=== PATIENT | female | born 1960 | race African-American/Black ===

== ENCOUNTER 2017-03-30 15:09 | Emergency (ER) | payer SELFPAY ==
[~2017-03-30 15:09] MED LIST: Iopamidol 370 76% 100 ML VIAL ONE
[2017-03-30 15:32] LABS: Bilirubin Negative (Negative); Blood, Urine Negative (Negative); Clarity Clear (Clear); Glucose, Urine (Dipstick) Negative (Negative); Leukocyte Negative (Negative); Nitrite Negative (Negative); Protein, Urine (Dipstick) Negative (Neg-Trace); Urobilinogen 0.2 mg/dL (0.2-1.0)
[2017-03-30 15:33] LABS: Specific Gravity, Urine 1.003 (1.002-1.036)
[2017-03-30 15:54] LABS: Pregnancy Test - Urine (BHCG) Negative (Negative)
[2017-03-30 15:55] LABS: Pregu Control Background? CLEAR/WHITE (CLR/WHITE); Pregu Control Bar Appear? YES (CONTROL BAR); Specific Gravity 1.003 (1.002-1.036)
[2017-03-30 15:57] LABS: #Basophils 0.1 thou/uL (0.0-0.2); #Lymphocytes 1.8 thou/uL (1.20-3.40); #Monocytes 0.4 thou/uL (0.11-0.59); %Basophils 0.8 % (0.0-1.0); %Eosinophils 0.5 % (0.0-10.0); %Lymphocytes 28.8 % (21.0-51.0); %Neutrophils 63.9 % (42.0-75.0); Hemoglobin 13.9 g/dL (12.0-16.0); Mean Corpuscular HGB CONC 33.9 g/dL (32.0-36.0); Mean Corpuscular Hemoglobin 31.3 pg (27.0-31.0); Mean Corpuscular Volume 92.4 fl (81.0-99.0); Mean Platelet Volume 9.3 fL (7.4-10.4); Platelet Count 246 thou/uL (130-400); RBC Distribution Width 11.4 % (11.5-14.5); Red Blood Cell (RBC) Count 4.42 mill/uL (4.20-5.40); White Blood Cell (WBC) Count 6.2 thou/uL (4.8-10.8)
[2017-03-30] MEDS ORDERED: Ketorolac Tromethamine 30 MG/ML VIAL ONE (15:58)
[2017-03-30 16:09] LABS: ALT (SGPT) 37 U/L (8-55); AST (SGOT) 65 U/L (5-34); Albumin 4.1 g/dL (3.5-5.0); Alkaline Phosphatase 110 U/L (40-150); Anion Gap 17 mmol/L (10-20); BUN (Urea Nitrogen) 4 mg/dL (9.8-20.1); Bilirubin, Total 0.3 mg/dL (0.2-1.2); Calc. Creatinine Clearance 0 mL/min (70-130); Calcium 9.3 mg/dL (7.8-10.44); Carbon Dioxide 20 mmol/L (22-29); Chloride 108 mmol/L (98-107); Estimated GFR-MDRD 88; Globulin 3.7 g/dL (2.4-3.5); Glucose 106 mg/dL (70-105); Lipase 53 U/L (8-78); Potassium 3.7 mmol/L (3.5-5.1); Protein, Total 7.8 g/dL (6.0-8.3); Sodium 141 mmol/L (136-145)
[2017-03-30] MEDS ORDERED: cefTRIAXone\\ROCEPHIN 1 GM VIAL ONE (17:07)
[2017-03-30] MEDS ORDERED: Sodium Chloride 0.9% 100 ML ONE (17:08)
--- NOTE | 2017-03-30 17:39 | CT ---
CT ABDOMEN AND PELVIS WITH CONTRAST 03/30/[address] of the abdomen and pelvis was done for evaluation of suprapubic pain and dysuria. Axial sl ices were acquired, then coronal reconstructions were done. The lung bases are clear. No effusions are seen. The liver is somewhat low density suggesting a diffuse fatty infiltration. The size is normal and no masses were seen. The spleen, pancreas, adrenal glands and abdominal aorta showed no acute findings . No stones were seen in the gallbladder. The kidneys showed no mass or hydronephrosis. There is a marginal amount of perinephric stranding on the left, but this is most often a chronic finding. My understanding is that the patient's urinary is unremarkable. The bowel shows no distention. There is no inflammatory change around bowel or bowel wall thickening . No free air of free fluid was seen. CT of the pelvis showed no pelvic masses, free fluid, or inflammatory changes. There may be a calcif ication associated with the left ovary. Degenerative changes are seen in the lumbar spine, particula rly at the L5-S1 level. There is some diffuse concentric bulging of the L3-4 and L4-5 discs. IMPRESSION: 1. No acute abdominal or pelvic findings to explain the patient's symptoms. 2. Diffuse fatty infiltration of the liver. POS: HOME
[2017-04-02 20:35] LABS: Chlamydia by PCR Not Detected (NotDetected); GC by PCR Not Detected (NotDetected)
== END 2017-03-30 18:07 | disposition home or self-care (01) ==
LOC: BURERS 15:09
DX: R30.0 Dysuria (principal); R10.9 Unspecified abdominal pain; I10 Essential (primary) hypertension; F17.210 Nicotine dependence, cigarettes, uncomplicated; F41.9 Anxiety disorder, unspecified
CPT/HCPCS: 74177; 80053; 81003; 81025; 83690; 85025; 87077; 87086; 87491; 87591; 94760; 96361; 96365; 96375; A4216; J0696; J1885; J7050

== ENCOUNTER 2017-06-15 10:13 | Emergency (ER) | payer MEDICAID, SELFPAY ==
[2017-06-15] MEDS ORDERED: Famotidine In NaCl 20 mg/50 ml Premix Bag ONE (10:46)
[2017-06-15] MEDS ORDERED: diphenhydrAMINE 50 MG/ML VIAL ONE (10:46)
[2017-06-15] MEDS ORDERED: Prochlorperazine 10 MG/2 ML VIAL ONE (10:46)
[2017-06-15 10:50] LABS: Band 2 % (5-11); Eosinophils 2 % (0-10); Hemoglobin 13.8 g/dL (12.0-16.0); Lymphocytes 14 % (21-51); MDiff Complete? YES; Mean Corpuscular HGB CONC 32.8 g/dL (32.0-36.0); Mean Corpuscular Hemoglobin 30.2 pg (27.0-31.0); Mean Platelet Volume 8.1 fL (7.4-10.4); Monocytes 8 % (0-10); Neutrophil 74 % (42-75); Platelet Count 145 thou/uL (130-400); RBC Distribution Width 10.8 % (11.5-14.5); Red Blood Cell (RBC) Count 4.59 mill/uL (4.20-5.40); White Blood Cell (WBC) Count 5.3 thou/uL (4.8-10.8)
[2017-06-15 10:58] LABS: Anion Gap 20 mmol/L (10-20); BUN (Urea Nitrogen) 7 mg/dL (9.8-20.1); Calc. Creatinine Clearance 0 mL/min (70-130); Calcium 9.6 mg/dL (7.8-10.44); Carbon Dioxide 22 mmol/L (22-29); Chloride 99 mmol/L (98-107); Estimated GFR-MDRD 74; Glucose 94 mg/dL (70-105); Potassium 3.8 mmol/L (3.5-5.1); Sodium 137 mmol/L (136-145)
[2017-06-15] MEDS ORDERED: Ketorolac Tromethamine 30 MG/ML VIAL ONE (11:03)
== END 2017-06-15 11:47 | disposition home or self-care (01) ==
LOC: BURERS 10:13
DX: J11.1 Influenza due to unidentified influenza virus with other respiratory manifestations (principal); I10 Essential (primary) hypertension; F32.9 Major depressive disorder, single episode, unspecified; F41.9 Anxiety disorder, unspecified; F17.210 Nicotine dependence, cigarettes, uncomplicated
CPT/HCPCS: 36415; 80048; 85025; 96365; 96375; J0780; J1200; J1885

== ENCOUNTER 2017-08-24 20:44 | Emergency (ER) | payer MEDICAID, OTHER ==
[2017-08-24] MEDS ORDERED: predniSONE 20 MG TAB ONE (21:10)
[2017-08-24] MEDS ORDERED: hydrOXYzine 25 MG TAB ONE (21:11)
== END 2017-08-24 21:22 | disposition home or self-care (01) ==
LOC: BURERS 20:44
DX: T63.441A Toxic effect of venom of bees, accidental (unintentional), initial encounter (principal); F41.9 Anxiety disorder, unspecified; F32.9 Major depressive disorder, single episode, unspecified; F17.210 Nicotine dependence, cigarettes, uncomplicated
CPT/HCPCS: 99282; J7506

== ENCOUNTER 2017-09-13 07:48 | Emergency (ER) | payer OTHER ==
[2017-09-13] MEDS ORDERED: Ketorolac Tromethamine 60 MG/2 ML VIAL ONE (08:10)
== END 2017-09-13 08:20 | disposition home or self-care (01) ==
LOC: BURERS 07:48
DX: B34.9 Viral infection, unspecified (principal); F41.9 Anxiety disorder, unspecified; F32.9 Major depressive disorder, single episode, unspecified; F17.210 Nicotine dependence, cigarettes, uncomplicated
CPT/HCPCS: 96372; J1885

== ENCOUNTER 2017-09-19 18:16 | Emergency (ER) | payer OTHER ==
[2017-09-19] MEDS ORDERED: Ibuprofen 200 MG TAB ONE (19:07)
[2017-09-19] MEDS ORDERED: Ondansetron ODT 4 MG TAB ONE (19:07)
[2017-09-19] MEDS ORDERED: Acetaminophen 500 MG TAB ONE (19:07)
--- NOTE | 2017-09-19 21:18 | RAD ---
CHEST TWO VIEWS: Date: 09-19-17 Comparison: 07-20-13 FINDINGS: There is a patchy infiltrate of the left upper lobe that was not present before. This is presumably p neumonia but it should be followed to complete resolution to be sure there is no other pathology here . Right lung is clear. Old healed rib fractures are seen in multiple right posterior ribs. The heart size is normal. There are no effusions. The trachea is midline. IMPRESSION: Patchy left upper lobe infiltrate consistent with pneumonia. A follow up film after treatment is requ ired. POS: HOME
== END 2017-09-19 20:07 | disposition home or self-care (01) ==
LOC: BURERS 18:16
DX: J18.9 Pneumonia, unspecified organism (principal); I10 Essential (primary) hypertension; F17.210 Nicotine dependence, cigarettes, uncomplicated
CPT/HCPCS: 71046; Q0162

== ENCOUNTER 2018-02-27 17:09 | Emergency (ER) | payer OTHER, SELFPAY ==
[2018-02-27 17:48] LABS: #Eosinphils 0.1 thou/uL (0.0-0.7); #Lymphocytes 2.1 thou/uL (1.20-3.40); #Monocytes 0.4 thou/uL (0.11-0.59); #Neutrophils 3.6 thou/uL (1.40-6.50); %Basophils 0.3 % (0.0-1.0); %Lymphocytes 33.5 % (21.0-51.0); %Monocytes 6.4 % (0.0-10.0); %Neutrophils 58.8 % (42.0-75.0); Hemoglobin 12.2 g/dL (12.0-16.0); Mean Corpuscular HGB CONC 35.4 g/dL (32.0-36.0); Mean Corpuscular Volume 81.9 fL (78.0-98.0); Mean Platelet Volume 6.2 fL (7.4-10.4); Platelet Count 201 thou/uL (130-400); RBC Distribution Width 10.9 % (11.5-14.5); White Blood Cell (WBC) Count 6.2 thou/uL (4.8-10.8)
[2018-02-27 18:04] LABS: ALT (SGPT) 21 U/L (8-55); AST (SGOT) 45 U/L (5-34); Alkaline Phosphatase 102 U/L (40-150); Anion Gap 17 mmol/L (10-20); BUN (Urea Nitrogen) 7 mg/dL (9.8-20.1); Bilirubin, Total 0.2 mg/dL (0.2-1.2); Calc. Creatinine Clearance 0 mL/min (70-130); Calcium 9.1 mg/dL (7.8-10.44); Carbon Dioxide 23 mmol/L (22-29); Chloride 105 mmol/L (98-107); Estimated GFR-MDRD Greater than 90; Globulin 3.5 g/dL (2.4-3.5); Glucose 101 mg/dL (70-105); Potassium 3.7 mmol/L (3.5-5.1); Protein, Total 7.5 g/dL (6.0-8.3); Sodium 141 mmol/L (136-145)
--- NOTE | 2018-02-27 20:43 | RAD ---
LUMBAR SPINE THREE VIEWS: 02/27/2018 FINDINGS: Degenerative disk disease is present at L5-S1, consisting of disk space narrowing, a vacuum phenomeno n, and osteophytes. Cross-sectional imaging would be needed to see if there is any neural impingemen t. Small osteophytes are seen elsewhere in the spine, predominantly at L4-L5. No fracture, dislocat ion, or SI joint abnormality is seen. There are some mild degenerative changes in each hip. IMPRESSION: Fairly predominant degenerative disk findings at L5-S1. POS: HOME
== END 2018-02-27 19:10 | disposition home or self-care (01) ==
LOC: BURERS 17:09
DX: M54.16 Radiculopathy, lumbar region (principal); I10 Essential (primary) hypertension; F32.9 Major depressive disorder, single episode, unspecified; F41.9 Anxiety disorder, unspecified; F17.210 Nicotine dependence, cigarettes, uncomplicated
CPT/HCPCS: 36415; 72100; 80053; 85025; 96372

== ENCOUNTER 2018-04-05 21:09 | Emergency (ER) | payer OTHER ==
[2018-04-05] MEDS ORDERED: HYDROcodone/Acetaminophen 10/325 mg Tablet ONE (21:22)
[2018-04-05] MEDS ORDERED: Ketorolac Tromethamine 30 MG/ML VIAL ONE (21:23)
== END 2018-04-05 21:39 | disposition home or self-care (01) ==
LOC: BURERS 21:09 → EDBD 21:09 → BURERS 21:39
DX: G89.29 Other chronic pain (principal); M54.5 Low back pain; F32.9 Major depressive disorder, single episode, unspecified; F41.9 Anxiety disorder, unspecified; F17.210 Nicotine dependence, cigarettes, uncomplicated; I10 Essential (primary) hypertension; Z79.899 Other long term (current) drug therapy
CPT/HCPCS: 96372; J1885

== ENCOUNTER 2018-05-22 18:19 | Emergency (ER) | payer OTHER ==
[2018-05-22] MEDS ORDERED: Ketorolac Tromethamine 30 MG/ML VIAL ONE (18:50)
[2018-05-22] MEDS ORDERED: HYDROcodone/Acetaminophen 10/325 mg Tablet ONE (18:50)
== END 2018-05-22 19:00 | disposition home or self-care (01) ==
LOC: BURERS 18:19
DX: M13.0 Polyarthritis, unspecified (principal); F41.9 Anxiety disorder, unspecified; I10 Essential (primary) hypertension; F17.210 Nicotine dependence, cigarettes, uncomplicated; F32.9 Major depressive disorder, single episode, unspecified; Z79.891 Long term (current) use of opiate analgesic; Z79.899 Other long term (current) drug therapy
CPT/HCPCS: 96372; J1885

== ENCOUNTER 2018-11-18 15:55 | Emergency (ER) | payer OTHER ==
[2018-11-18 16:14] LABS: Bilirubin Negative (Negative); Blood, Urine Negative (Negative); Clarity Clear (Clear); Glucose, Urine (Dipstick) Negative (Negative); Leukocyte Negative (Negative); Nitrite Negative (Negative); Protein, Urine (Dipstick) Negative (Neg-Trace); Urobilinogen 0.2 mg/dL (0.2-1.0)
[2018-11-18 16:16] LABS: Specific Gravity, Urine 1.002 (1.002-1.036)
[2018-11-18 16:31] LABS: Pregnancy Test - Urine (BHCG) Negative (Negative); Pregu Control Background? CLEAR/WHITE (CLR/WHITE); Pregu Control Bar Appear? YES (CONTROL BAR); Specific Gravity 1.002 (1.002-1.036)
[2018-11-18 16:41] LABS: #Lymphocytes 1.8 thou/uL (1.20-3.40); #Monocytes 0.6 thou/uL (0.11-0.59); #Neutrophils 2.5 thou/uL (1.40-6.50); %Basophils 0.5 % (0.0-1.0); %Eosinophils 0.5 % (0.0-10.0); %Lymphocytes 36.5 % (21.0-51.0); %Monocytes 11.8 % (0.0-10.0); %Neutrophils 50.7 % (42.0-75.0); Hemoglobin 12.3 g/dL (12.0-16.0); Mean Corpuscular HGB CONC 33.7 g/dL (32.0-36.0); Mean Platelet Volume 7.1 fL (7.4-10.4); Platelet Count 167 thou/uL (130-400); RBC Distribution Width 11.3 % (11.5-14.5); Red Blood Cell (RBC) Count 4.11 mill/uL (4.20-5.40)
[2018-11-18] MEDS ORDERED: Ketorolac Tromethamine 30 MG/ML VIAL ONE (16:56)
[2018-11-18 16:58] LABS: ALT (SGPT) 38 U/L (8-55); AST (SGOT) 77 U/L (5-34); Albumin 4.3 g/dL (3.5-5.0); Alcohol 303 mg/dL (Less than 10); Alkaline Phosphatase 109 U/L (40-150); Anion Gap 18 mmol/L (10-20); BUN (Urea Nitrogen) 7 mg/dL (9.8-20.1); Bilirubin, Total 0.3 mg/dL (0.2-1.2); Calc. Creatinine Clearance 0 mL/min (70-130); Carbon Dioxide 21 mmol/L (22-29); Chloride 98 mmol/L (98-107); Estimated GFR-MDRD Greater than 90; Globulin 3.4 g/dL (2.4-3.5); Glucose 96 mg/dL (70-105); Potassium 3.9 mmol/L (3.5-5.1); Protein, Total 7.7 g/dL (6.0-8.3); Sodium 133 mmol/L (136-145)
--- NOTE | 2018-11-18 19:34 | CT ---
CT ABDOMEN AND PELVIS WITH CONTRAST 11/18/[address] of the abdomen and pelvis was performed with IV contrast. Initial reading of this study was significantly delayed due to PACS and internet issues. Comparison is made with older CT studies. The left ureter seems somewhat dilated. It is difficult to follow it completely. There is one calcifi cation near the left UVJ that is suspicious for a small stone in the distal ureter, but it is difficu lt to be certain. It is 4 to 5 mm in caliber. The urinary bladder is moderately distended today. This would potentially fit with the history of left sided pain. The lung bases are clear and show no effusions. Diffuse fatty infiltration of the liver is present as before. No gallstones were seen. The pancreas, spleen, and adrenal glands were unremarkable. No mass or calcification was seen in either kidney. There really is not much hydronephrosis in the left kidn ey at all, but the left ureter does seem rather large soon exiting the renal pelvis. The bowel shows no distention or inflammatory change round it. There is no free air or free fluid. CT of the pelvis shows moderate distention of the urinary bladder. No adnexal masses were seen. There are various pelvic calcifications which are mostly phleboliths. Again, one near the left UVJ is some what suspicious for a distal stone given location and it is more angular than rounded. A perfectly ro unded calcification seen just anteromedial to the distal left psoas muscle in the mid pelvic level ap pears to be a phlebolith and was present previously. There are significant degenerative changes in th e lumbar spine with a degenerated disc at L5-S1 and central canal stenosis at at least L4-L5 and L3-L 4. IMPRESSION: 1. Some dilation of the left ureter down to the pelvic level. Suspicious for a small 4 to 5 mm c alculus at the distal left UVJ. 2. Moderate bladder distention. 3. Fatty infiltration of the liver. Initial conversion with Dr. Nicole at 1807 with still imaging incomplete due to PACS issues. Follow- up conversion with presumptive diagnosis at 1925. Even at that point, not all images had been transfe rred. POS: HOME
== END 2018-11-18 18:38 | disposition home or self-care (01) ==
LOC: BURERS 15:55
DX: N20.0 Calculus of kidney (principal); I10 Essential (primary) hypertension; F41.9 Anxiety disorder, unspecified; F32.9 Major depressive disorder, single episode, unspecified; F17.210 Nicotine dependence, cigarettes, uncomplicated; Z79.899 Other long term (current) drug therapy
CPT/HCPCS: 74177; 80053; 80307; 81003; 81025; 84484; 85025; 93005; 96374; J1885

== ENCOUNTER 2018-11-24 15:55 | Emergency (ER) | payer OTHER ==
[2018-11-24] MEDS ORDERED: Ketorolac Tromethamine 60 MG/2 ML VIAL ONE (16:16)
[2018-11-24] MEDS ORDERED: Acetaminophen/Codeine 30-300mg Tablet ONE (16:16)
[2018-11-24 16:17] LABS: Bilirubin Negative (Negative); Blood, Urine Negative (Negative); Clarity Clear (Clear); Glucose, Urine (Dipstick) Negative (Negative); Leukocyte Negative (Negative); Nitrite Negative (Negative); Protein, Urine (Dipstick) Negative (Neg-Trace); Specific Gravity, Urine 1.002 (1.002-1.036); Urobilinogen 0.2 mg/dL (0.2-1.0)
== END 2018-11-24 16:33 | disposition home or self-care (01) ==
LOC: BURERS 15:55
DX: N20.0 Calculus of kidney (principal); I10 Essential (primary) hypertension; F17.210 Nicotine dependence, cigarettes, uncomplicated; Z79.891 Long term (current) use of opiate analgesic; Z79.899 Other long term (current) drug therapy
CPT/HCPCS: 81003; 96372; J1885

== ENCOUNTER 2018-12-05 14:28 | Emergency (ER) | payer OTHER ==
[2018-12-05] MEDS ORDERED: Mag-Al Plus 1200 MG/1200 MG/120 MG/30 ML UDCUP ONE (14:50)
[2018-12-05] MEDS ORDERED: Aspirin Chewable 81 MG TAB ONE (14:50)
[2018-12-05] MEDS ORDERED: Lidocaine Viscous Sol 2% 15 ml UD Cup ONE (14:50)
[2018-12-05 15:23] LABS: ALT (SGPT) 38 U/L (8-55); AST (SGOT) 89 U/L (5-34); Albumin 4.1 g/dL (3.5-5.0); Alkaline Phosphatase 114 U/L (40-150); Anion Gap 17 mmol/L (10-20); BUN (Urea Nitrogen) 6 mg/dL (9.8-20.1); Bilirubin, Total 0.3 mg/dL (0.2-1.2); Calc. Creatinine Clearance 0 mL/min (70-130); Carbon Dioxide 20 mmol/L (22-29); Chloride 100 mmol/L (98-107); Estimated GFR-MDRD Greater than 90; Globulin 3.7 g/dL (2.4-3.5); Glucose 93 mg/dL (70-105); Lipase 66 U/L (8-78); Potassium 3.9 mmol/L (3.5-5.1); Protein, Total 7.8 g/dL (6.0-8.3); Sodium 133 mmol/L (136-145)
[2018-12-05 15:31] LABS: #Basophils 0.1 thou/uL (0.0-0.2); #Lymphocytes 2.1 thou/uL (1.20-3.40); #Monocytes 0.5 thou/uL (0.11-0.59); #Neutrophils 3.6 thou/uL (1.40-6.50); %Basophils 0.9 % (0.0-1.0); %Eosinophils 0.7 % (0.0-10.0); %Lymphocytes 33.3 % (21.0-51.0); %Monocytes 7.5 % (0.0-10.0); %Neutrophils 57.7 % (42.0-75.0); Hemoglobin 12.4 g/dL (12.0-16.0); Mean Corpuscular HGB CONC 32.6 g/dL (32.0-36.0); Mean Corpuscular Hemoglobin 29.3 pg (27.0-31.0); Mean Corpuscular Volume 89.7 fL (78.0-98.0); Mean Platelet Volume 7.7 fL (7.4-10.4); Platelet Count 174 thou/uL (130-400); RBC Distribution Width 11.4 % (11.5-14.5); Red Blood Cell (RBC) Count 4.24 mill/uL (4.20-5.40); White Blood Cell (WBC) Count 6.2 thou/uL (4.8-10.8)
[2018-12-05] MEDS ORDERED: Ibuprofen 200 MG TAB ONE (15:38)
[2018-12-05] MEDS ORDERED: Famotidine 20 MG TAB ONE (15:38)
--- NOTE | 2018-12-05 17:33 | RAD ---
PORTABLE CHEST 12/05/18 An AP portable film at 1450 is compared with a 01/28/18 study. The heart size is unchanged. There is no vascular congestion, edema, or pleural effusion. The lungs are clear. IMPRESSION: No acute thoracic findings. POS: HOME
== END 2018-12-05 15:42 | disposition home or self-care (01) ==
LOC: BURERS 14:28
DX: K21.9 Gastro-esophageal reflux disease without esophagitis (principal); I10 Essential (primary) hypertension; F17.210 Nicotine dependence, cigarettes, uncomplicated; Z79.899 Other long term (current) drug therapy; Z79.891 Long term (current) use of opiate analgesic
CPT/HCPCS: 71045; 80053; 83690; 84484; 85025; 93005

== ENCOUNTER 2019-02-07 14:18 | Emergency (ER) | payer OTHER ==
[~2019-02-07 14:18] MED LIST changes: +Iopamidol 370 76% 50 ML VIAL FS ONE
[2019-02-07] MEDS ORDERED: Thiamine HCl 200 MG/2 ML VIAL ONE (14:43)
[2019-02-07] MEDS ORDERED: Famotidine In NaCl 20 mg/50 ml Premix Bag ONE (14:44)
[2019-02-07] MEDS ORDERED: Glycopyrrolate 0.4 MG/ 2 ML VIAL ONE (14:45)
[2019-02-07 14:49] LABS: #Eosinphils 0.1 thou/uL (0.0-0.7); #Lymphocytes 2.6 thou/uL (1.20-3.40); #Monocytes 0.7 thou/uL (0.11-0.59); #Neutrophils 2.8 thou/uL (1.40-6.50); %Basophils 0.5 % (0.0-1.0); %Eosinophils 1.1 % (0.0-10.0); %Monocytes 11.4 % (0.0-10.0); Hemoglobin 11.6 g/dL (12.0-16.0); Mean Corpuscular HGB CONC 32.9 g/dL (32.0-36.0); Mean Corpuscular Hemoglobin 29.9 pg (27.0-31.0); Mean Corpuscular Volume 90.7 fL (78.0-98.0); Mean Platelet Volume 7.1 fL (7.4-10.4); Platelet Count 161 thou/uL (130-400); RBC Distribution Width 11.7 % (11.5-14.5); Red Blood Cell (RBC) Count 3.88 mill/uL (4.20-5.40); White Blood Cell (WBC) Count 6.2 thou/uL (4.8-10.8)
[2019-02-07 14:56] LABS: PTT 32.1 SEC (22.9-36.1); Prothrombin Time 13.5 SEC (12.0-14.7)
[2019-02-07 15:01] LABS: Bilirubin Negative (Negative); Blood, Urine Moderate (Negative); Clarity Clear (Clear); Glucose, Urine (Dipstick) Negative (Negative); Leukocyte Negative (Negative); Nitrite Negative (Negative); Protein, Urine (Dipstick) Negative (Neg-Trace); Urobilinogen 0.2 mg/dL (Less than 2)
[2019-02-07 15:03] LABS: ALT (SGPT) 45 U/L (8-55); AST (SGOT) 97 U/L (5-34); Alcohol 301 mg/dL (Less than 10); Alkaline Phosphatase 108 U/L (40-150); Anion Gap 15 mmol/L (10-20); BUN (Urea Nitrogen) 5 mg/dL (9.8-20.1); Bilirubin, Total 0.2 mg/dL (0.2-1.2); Calc. Creatinine Clearance 0 mL/min (70-130); Carbon Dioxide 23 mmol/L (22-29); Chloride 100 mmol/L (98-107); Estimated GFR-MDRD Greater than 90; Globulin 3.4 g/dL (2.4-3.5); Glucose 99 mg/dL (70-105); Lipase 80 U/L (8-78); Potassium 3.8 mmol/L (3.5-5.1); Protein, Total 7.4 g/dL (6.0-8.3); Sodium 134 mmol/L (136-145)
[2019-02-07 15:04] LABS: Bacteria/HPF 1+ HPF (None Seen); Broad Cast None Seen LPF (None Seen); Calcium Oxalate Crystals None Seen HPF (None Seen); Cellular Cast None Seen LPF (None Seen); Epithelial Cast None Seen LPF (None Seen); Fatty Cast None Seen LPF (None Seen); Mucous/LPF None Seen LPF (<2+); Other Casts None Seen LPF (None Seen); Oval Fat Bodies/HPF None Seen HPF (None Seen); RBC/HPF None Seen HPF (0-3); Red Blood Cell Cast None Seen LPF (None Seen); Renal Epithelial None Seen HPF (None Seen); Sperm/HPF None Seen HPF (None Seen); Squamous Epithelial 0-3 HPF (0-3); Transitional Epithelial None Seen HPF (None Seen); Trichomonas/HPF None Seen HPF (None Seen); Triple Phosphate Crystal None Seen HPF (None Seen); Unclassified Crystals None Seen HPF (None Seen); WBC/HPF None Seen HPF (0-3); Waxy Cast None Seen LPF (None Seen); White Blood Cell Cast None Seen LPF (None Seen); Yeast-Budding None Seen HPF (None Seen); Yeast-Hyphae None Seen HPF (None Seen)
[2019-02-07] MEDS ORDERED: Ketorolac Tromethamine 30 MG/ML VIAL ONE (17:15)
--- NOTE | 2019-02-07 17:16 | CT ---
EXAM: CT abdomen and pelvis with IV contrast PROVIDED CLINICAL HISTORY: None COMPARISON: None FINDINGS: The visualized lung bases are free of significant opacity. Diffuse fatty infiltration of the liver. The solid abdominal organs demonstrate an otherwise unremark able CT appearance. Stable somewhat patulous appearance to the proximal left ureter. Calcification adjacent to the left ureter is favored to the extraureteral. There is no bowel dilatation, inflammatory fat stranding, free fluid or free air apparent. There is n o evidence for appendicitis. No regional lymph node enlargement apparent. The regional major vascular structures appear unremarkab le. The osseous structures demonstrate no concerning lytic or blastic lesions. IMPRESSION: No evidence for an acute abnormality.
[2019-02-07] MEDS ORDERED: Mag-Al Plus 1200 MG/1200 MG/120 MG/30 ML UDCUP ONE (17:32)
[2019-02-07] MEDS ORDERED: Lidocaine Viscous Sol 2% 15 ml UD Cup ONE (17:32)
== END 2019-02-07 17:40 | disposition home or self-care (01) ==
LOC: EDBD 14:18 → BURERS 14:18
DX: K64.4 Residual hemorrhoidal skin tags (principal); K29.70 Gastritis, unspecified, without bleeding; F10.10 Alcohol abuse, uncomplicated; K62.5 Hemorrhage of anus and rectum; I10 Essential (primary) hypertension; F17.210 Nicotine dependence, cigarettes, uncomplicated; Z79.899 Other long term (current) drug therapy
CPT/HCPCS: 74177; 80053; 80307; 81003; 81015; 82274; 83690; 85025; 85610; 85730; 94760; 96365; 96375; J1885; J3411; Q9967

== ENCOUNTER 2019-08-23 19:32 | Emergency (ER) | payer OTHER ==
[2019-08-23] MEDS ORDERED: HYDROcodone/Acetaminophen 10/325 mg Tablet ONE (19:54)
[2019-08-23] MEDS ORDERED: Ketorolac Tromethamine 30 MG/ML VIAL ONE (20:25)
--- NOTE | 2019-08-23 20:50 | CT ---
CT LUMBAR SPINE 08/23/[address] of the lumbar spine was done following trauma. No fracture, dislocation, or acute bony change was seen. The visible portions of the SI joints appear normal. There is a multilevel spinal stenosis present at L3 through S1. A degenerated disc is prese nt at L5-S1 with a sequestered fragment seen posteriorly. The visible soft tissue structures on this study showed no acute change. IMPRESSION: 1. No acute bony abnormalities. 2. Multilevel spinal stenosis, at least from L3 through S1. 3. Degenerated disc at L5-S1 with sequestered fragment posteriorly. Findings discussed with Dr. Pulido at 2018 on 08/23/19. POS: HOME
== END 2019-08-23 20:31 | disposition home or self-care (01) ==
LOC: BURERS 19:32
DX: M51.36 Other intervertebral disc degeneration, lumbar region (principal); I10 Essential (primary) hypertension; W18.30XA Fall on same level, unspecified, initial encounter
CPT/HCPCS: 72131; 96372; J1885

== ENCOUNTER 2019-12-05 08:46 | Outpatient (CLI) | payer OTHER ==
--- NOTE | 2019-12-05 15:24 | RAD ---
LEFT SHOULDER THREE VIEWS: 12/05/19 No fracture, dislocation, or periarticular calcification was seen. Some minor arthritic changes are seen in the AC joint. The adjacent ribs appear normal, as does the scapula. IMPRESSION: No significant finding. POS: HOME
== END 2019-12-05 08:47 | disposition home or self-care (01) ==
LOC: BURRAD 08:46
PROVIDERS: ATTEND Family Medicine
DX: M25.512 Pain in left shoulder (principal)

== ENCOUNTER 2021-01-04 13:28 | Emergency (ER) | payer OTHER ==
[2021-01-04] MEDS ORDERED: Fentanyl 100 MCG/2 ML VIAL ONE (14:00)
[2021-01-04] MEDS ORDERED: Famotidine In NaCl 20 mg/50 ml Premix Bag ONE (14:00)
[2021-01-04] MEDS ORDERED: Ondansetron PF 4 MG/2 ML Vial ONE (14:00)
[2021-01-04] MEDS ORDERED: Glycopyrrolate 0.4 MG/ 2 ML VIAL ONE (14:00)
[2021-01-04 14:04] LABS: #Basophils 0.1 thou/uL (0.0-0.2); #Eosinphils 0.1 thou/uL (0.0-0.7); #Monocytes 0.7 thou/uL (0.11-0.59); %Basophils 0.6 % (0.0-1.0); %Eosinophils 0.9 % (0.0-10.0); %Monocytes 9.1 % (0.0-10.0); %Neutrophils 63.3 % (42.0-75.0); Hemoglobin 10.5 g/dL (12.0-16.0); Mean Corpuscular HGB CONC 32.5 g/dL (32.0-36.0); Mean Corpuscular Hemoglobin 28.7 pg (27.0-31.0); Mean Corpuscular Volume 88.4 fL (78.0-98.0); Mean Platelet Volume 7.9 fL (7.4-10.4); Platelet Count 214 thou/uL (130-400); Red Blood Cell (RBC) Count 3.64 mill/uL (4.20-5.40); White Blood Cell (WBC) Count 7.9 thou/uL (4.8-10.8)
[2021-01-04 14:08] LABS: Bilirubin Negative (Negative); Blood, Urine Negative (Negative); Clarity Clear (Clear); Glucose, Urine (Dipstick) Negative (Negative); Ketone, Urine Negative (Negative); Leukocyte Negative (Negative); Nitrite Negative (Negative); Protein, Urine (Dipstick) Negative (Neg-Trace); Urobilinogen 0.2 mg/dL (Less than 2)
[2021-01-04 14:11] LABS: Specific Gravity, Urine 1.005 (1.002-1.036)
[2021-01-04 14:19] LABS: ALT (SGPT) 19 U/L (8-55); AST (SGOT) 51 U/L (5-34); Albumin 3.4 g/dL (3.5-5.0); Alkaline Phosphatase 120 U/L (40-110); Anion Gap 17 mmol/L (10-20); BUN (Urea Nitrogen) Less than 4 mg/dL (9.8-20.1); Bilirubin, Total 0.3 mg/dL (0.2-1.2); Calc. Creatinine Clearance 0 mL/min (70-130); Calcium 8.7 mg/dL (7.8-10.44); Carbon Dioxide 20 mmol/L (22-29); Chloride 102 mmol/L (98-107); Globulin 3.8 g/dL (2.4-3.5); Glucose 92 mg/dL (70-105); Lipase 44 U/L (8-78); Potassium 3.9 mmol/L (3.5-5.1); Protein, Total 7.2 g/dL (6.0-8.3); Sodium 135 mmol/L (136-145)
[2021-01-04] MEDS ORDERED: Mag-Al Plus 1200 MG/1200 MG/120 MG/30 ML UDCUP ONE (14:36)
[2021-01-04] MEDS ORDERED: Lidocaine Viscous Sol 2% 15 ml UD Cup ONE (14:36)
== END 2021-01-04 15:10 | disposition home or self-care (01) ==
LOC: BURERS 13:28
DX: K29.00 Acute gastritis without bleeding (principal); I10 Essential (primary) hypertension; F17.210 Nicotine dependence, cigarettes, uncomplicated
CPT/HCPCS: 80053; 81003; 83605; 83690; 84484; 85025; 93005; 94760; 96374; 96375; J2405; J3010

== ENCOUNTER 2021-06-09 09:31 | Outpatient (CLI) | payer OTHER | END 2021-06-09 09:32 | disposition home or self-care (01) | LOC: BURRAD 09:31 | PROVIDERS: ATTEND Family Medicine | DX: M54.2 Cervicalgia (principal); M25.512 Pain in left shoulder; M47.812 Spondylosis without myelopathy or radiculopathy, cervical region | CPT/HCPCS: 72040 ==

== ENCOUNTER 2023-03-29 07:29 | Emergency (ER) | payer OTHER ==
[2023-03-29 08:15] LABS: #Lymphocytes 1.2 thou/uL (1.20-3.40); #Monocytes 0.6 thou/uL (0.11-0.59); #Neutrophils 6.4 thou/uL (1.40-6.50); %Basophils 0.5 % (0.0-1.0); %Eosinophils 0.6 % (0.0-10.0); %Monocytes 7.8 % (0.0-10.0); %Neutrophils 77.2 % (42.0-75.0); Hematocrit 46.4 % (36.0-47.0); Hemoglobin 15.1 g/dL (12.0-16.0); Mean Corpuscular HGB CONC 32.5 g/dL (32.0-36.0); Mean Corpuscular Hemoglobin 29.7 pg (27.0-31.0); Mean Corpuscular Volume 91.4 fl (78.0-98.0); Mean Platelet Volume 8.1 fL (7.4-10.4); Platelet Count 187 10x3/uL (130-400); RBC Distribution Width 11.5 % (11.5-14.5); Red Blood Cell (RBC) Count 5.07 mill/uL (4.20-5.40); White Blood Cell (WBC) Count 8.2 10x3/uL (4.8-10.8)
[2023-03-29] MEDS ORDERED: Ondansetron PF 4 MG/2 ML Vial ONE (08:22)
[2023-03-29 08:23] LABS: Bilirubin Small (Negative); Blood, Urine Trace (Negative); Clarity Clear (Clear); Glucose, Urine (Dipstick) Negative (Negative); Ketone, Urine Trace mg/dL (Negative); Leukocyte Trace (Negative); Nitrite Negative (Negative); Protein, Urine (Dipstick) 100 mg/dL (Neg-Trace); Specific Gravity, Urine 1.015 (1.005-1.030); pH, Urine 8.5 (5.0-9.0)
[2023-03-29 08:32] LABS: ALT (SGPT) 40 U/L (8-55); AST (SGOT) 88 U/L (5-34); Albumin 3.9 g/dL (3.4-4.8); Alkaline Phosphatase 200 U/L (40-110); Anion Gap 20 mmol/L (10-20); BUN (Urea Nitrogen) 4 mg/dL (9.8-20.1); Bilirubin, Total 1.1 mg/dL (0.2-1.2); Calc. Creatinine Clearance 0 mL/min (70-130); Calcium 9.7 mg/dL (7.8-10.44); Carbon Dioxide 22 mmol/L (23-31); Chloride 102 mmol/L (98-107); Estimated GFR 95; Globulin 3.9 g/dL (2.4-3.5); Glucose 111 mg/dL (80-115); Lipase 25 U/L (8-78); Potassium 4.4 mmol/L (3.5-5.1); Protein, Total 7.8 g/dL (5.8-8.1); Sodium 140 mmol/L (136-145)
[2023-03-29 08:34] LABS: Troponin I 0.014 ng/mL (< 0.028)
[2023-03-29 08:37] LABS: Bacteria/HPF 1+ HPF (None Seen); CAUTI Indications for Culture Pelvic or flank pain; RBC/HPF 0-3 HPF (0-3); Squamous Epithelial 0-3 HPF (0-3)
[2023-03-29 08:39] LABS: Urine Culture Reflex No No
[2023-03-29] MEDS ORDERED: Sodium Chloride 0.9% 100 ML ONE (09:10)
[2023-03-29] MEDS ORDERED: cefTRIAXone (ROCEPHIN) 1 GM VIAL ONE (09:10)
[2023-03-29 09:26] LABS: SARS-CoV-2 NAA Rapid Test Not Detected (NotDetected)
[2023-03-29] MEDS ORDERED: Mag-Al Plus 1200 MG/1200 MG/120 MG/30 ML UDCUP ONE (09:30)
[2023-03-29] MEDS ORDERED: Lidocaine Viscous Sol 2% 15 ml UD Cup ONE (09:30)
[2023-03-29] MEDS ORDERED: Ketorolac Tromethamine 30 MG/ML VIAL ONE (09:30)
[2023-03-29] MEDS ORDERED: Iopamidol 370 76% 100 ML VIAL ONE (12:09)
== END 2023-03-29 11:02 | disposition home or self-care (01) ==
LOC: BURERS 07:29
DX: N39.0 Urinary tract infection, site not specified (principal); J45.909 Unspecified asthma, uncomplicated; I10 Essential (primary) hypertension; Z87.891 Personal history of nicotine dependence; Z20.822 Contact with and (suspected) exposure to COVID-19
CPT/HCPCS: 71045; 74177; 80053; 81001; 83690; 84484; 85025; 96361; 96365; 96372; 96375; J0696; J1885; J2405; J3490; Q9967